=== PATIENT | male | born 1990 | race African-American/Black ===

== ENCOUNTER 2020-04-03 18:01 | Emergency (ER) | payer SELFPAY ==
[~2020-04-03] VITALS: Ht 177.8 cm; Wt 70.0 kg
[2020-04-03 21:35] VITALS: BP 154/84
== END 2020-04-03 21:37 | disposition left against medical advice (07) ==
LOC: ER 18:01
DX: F15.188 Other stimulant abuse with other stimulant-induced disorder (principal); F16.188 Hallucinogen abuse with other hallucinogen-induced disorder; R55 Syncope and collapse; F32.9 Major depressive disorder, single episode, unspecified; N19 Unspecified kidney failure; I44.4 Left anterior fascicular block; Z85.118 Personal history of other malignant neoplasm of bronchus and lung
CPT/HCPCS: 93005; 99283